=== PATIENT | female | born 1965 | race Caucasian/White ===

== ENCOUNTER → 2016-09-12 | Outpatient (CLI) | payer OTHER ==
[2016-09-12 17:38] LABS: ABSOLUTE EOSINOPHILS # (AUTO) 0.1 10^3/uL (0.0-0.6); ABSOLUTE LYMPHOCYTES (AUTO) 2.2 10^3/uL (0.5-4.7); ABSOLUTE MONOCYTES (AUTO) 0.5 10^3/uL (0.1-1.4); ABSOLUTE NEUT (AUTO) 3.1 10^3/uL (1.7-8.2); BASOPHILS % (AUTO) 0.7 % (0-2); EOSINOPHILS % (AUTO) 2.5 % (0-6); HEMATOCRIT 37.2 % (36.0-47.0); HEMOGLOBIN 12.3 g/dL (12.0-15.5); HGB HCT DIFFERENCE -0.3; LYMPHOCYTES % (AUTO) 36.7 % (13-45); MEAN CORPUSCULAR HEMOGLOBIN 32.5 pg (27.0-33.4); MEAN CORPUSCULAR HGB CONC 33.2 g/dL (32.0-36.0); MEAN CORPUSCULAR VOLUME 98 fl (80-97); MONOCYTES % (AUTO) 8.1 % (3-13); RED CELL DISTRIBUTION WIDTH 12.8 % (11.5-14.0); WHITE BLOOD COUNT 5.9 10^3/uL (4.0-10.5)
[2016-09-12 17:46] LABS: APPEARANCE,URINE CLEAR; BILIRUBIN,URINE NEGATIVE (NEGATIVE); GLUCOSE, URINE NEGATIVE (NEGATIVE); KETONES,URINE NEGATIVE (NEGATIVE); LEUKOCYTE ESTERASE,URINE NEGATIVE (NEGATIVE); NITRITE,URINE NEGATIVE (NEGATIVE); PROTEIN,URINE NEGATIVE (NEGATIVE); URINE SPECIFIC GRAVITY 1.011; UROBILINOGEN,URINE NEGATIVE mg/dL (<2.0)
== END ==
LOC: OD 16:45
PROVIDERS: ATTEND Podiatrist Foot & Ankle Surgery
DX: Z01.812 Encounter for preprocedural laboratory examination (principal); M20.12 Hallux valgus (acquired), left foot
CPT/HCPCS: 36415; 81001; 85025

== ENCOUNTER 2016-09-14 10:39 | Day surgery (SDC) | payer OTHER ==
[~2016-09-14 10:39] MED LIST: CEFAZOLIN 1 GM/D5W RTU 1 GM/50 ML RTUPB IV PRN; FENTANYL CITRATE INJ/PF 100 MCG/2 ML AMPUL ONE; HYDROMORPHONE HCL INJ/PF 2 MG/ML AMPULE ONE; MIDAZOLAM 2 MG/2 ML INJ ONE; PROPOFOL INJ 200 MG/20 ML VIAL IV ONE; RINGERS SOLUTION,LACTATED 1,000 ML IV PRN
[2016-09-14] MEDS ORDERED: BUPIVACAINE HCL 0.5 % INJ/PF 30 ML SDV ONE (10:57)
[2016-09-14] MEDS ORDERED: LIDOCAINE 2% INJ (20 MG/ML) 20 ML MDV ONE (10:57)
--- NOTE | 2016-09-14 14:48 | [facility] OPERATIVE REPORT E ---
[facility] NAME: AMINATA NOBLE AGE: 51Y DATE OF SURGERY: 09/14/2016 ROOM: PREOPERATIVE DIAGNOSES: 1. Tailor bunion deformity of left foot. 2. A digital deformity of the fourth and fifth toes, left foot. POSTOPERATIVE DIAGNOSES: 1. Tailor bunion deformity of left foot. 2. A digital deformity of the fourth and fifth toes, left foot. PROCEDURES PERFORMED: 1. Osteotomy, fifth metatarsal left foot. 2. Phalangectomy, proximal phalanx, fifth toe left foot. 3. Phalangectomy, middle phalanx, fourth toe left foot. FINDINGS: Intraoperative findings indicated dislocation of the fifth metatarsal phalangeal joint which has created a pressure area on the lateral aspect of the hip at the fifth metatarsal and also has set the environment for the fifth toe to rotate in a varus rotation, and due to the excessive pressure against the fourth toe, the fourth toe has dislocated and has acquired an under-lapping position under the third toe. There was also aforementioned a very painful corn at the very distal medial aspect of the fifth toe due to this chronic friction between the fourth and fifth toe. Intraoperative findings were confirmed clinically and radiographically. SURGEON: LEOLA EDGE D.P.M. PROCEDURE: With the patient lying in a dorsal recumbent position, left foot and leg was prepped and draped in the usual standard sterile orthopedic manner after the local anesthesia was administered, which was a total ankle block. After the anesthetic effect was accomplished, the left leg was elevated for approximately 2 minutes of time, and the left ankle pneumatic tourniquet was inflated up to 250 mmHg after the blood was exsanguinated from the left foot. The left foot was brought to the level of the table. Attention was directed right over the fifth metatarsophalangeal joint. A curvilinear incision was placed right over the joint. The initial incision was deepened. The superficial and deep subcutaneous tissues were dissected via blunt and sharp dissection. All bleeders were dilated. All vital structures were identified and protected from surgical trauma. At that point, the capsular structures along the fifth metatarsal joint were visualized, and a vertical capsulotomy was performed over the joint. Capsule and periosteal structures were dissected to bone. The surgical neck was brought into the surgical field, and this was the area of performing the osteotomy which was performed from dorsal to plantar direction. This was an oblique osteotomy with 45-degree angulation to the long axis of the fifth metatarsal. The osteotomy was from medial proximal to lateral distal direction. After the osteotomy was completed, the head was shifted medially and dorsally. That allowed the fifth toe to acquire a little bit more a rectus position in relationship to the long axis of the foot. A decision was made to straighten the fifth toe further. A curvilinear incision was placed right over the fifth toe. The initial incision was deepened. The superficial and deep subcutaneous tissues were dissected via blunt and sharp dissection. This dissection was carried until the capsule structures of the proximal interphalangeal joint were brought into the surgical field. At this point, a transverse incision was placed right over the joint capsule and periosteal structures were dissected to bone. The head of the proximal phalanx was brought into the surgical field. A very distal portion of the proximal phalanx of the fifth toe was removed. A sufficient bone was removed to allow a fifth toe to acquire a more aligned rectus position. The evaluation was conducted and the correction was very satisfactory. Next, attention was directed right over the fourth toe. A hockey-type incision was placed right over the fourth toe. The incision ran over the dorsal lateral, and the hockey portion of the incision curved distal to the distal interphalangeal joint. The initial incision was deepened. The superficial and deep subcutaneous tissues were dissected via blunt and sharp dissection, and at this point the distal interphalangeal joint was visualized. A transverse incision was placed right over the joint. Capsule and periosteal structures were dissected to bone, and the head of the middle phalanx was visualized. The very distal portion of the middle phalanx was removed, and that bone was resected to allow the distal portion of the fourth toe to acquire a rectus position. Final evaluation was conducted, and again correction was extremely satisfactory. At this point, the left ankle pneumatic tourniquet was deflated. Circulation of the left foot returned to normal as the normal digital color and temperature became apparent. At this point, the capsule structures around the fifth metatarsophalangeal joint, the proximal interphalangeal joint of the fifth toe, and the distal interphalangeal joint of the fourth toe were closed with 3-0 Vicryl. All subcutaneous tissues from deep to superficial at the 3 surgical sites were closed with 3-0 Vicryl. Finally, the skin edges were coapted and closed with 4-0 nylon suture over the fifth metatarsophalangeal joint and over the fifth toe. Prior to closure of the skin over the fourth toe, there was a little plastic revision done of the skin. There was a creation of extra skin due to the rotation of the fourth toe, and a rectangular wedge of skin was removed so the skin edges could be aligned properly. After that, the skin edges were closed with 4-0 nylon using continuous interlocked stitch. At this point, Betadine compression dressing was applied around the multiple surgical sites followed with Kal bandage and a surgical shoe. This patient tolerated procedures well, left the operating room with stable vital signs in good condition. The patient was taken to the recovery room alert, conscious, and oriented. There are no permanent disabilities anticipated at this time. DICTATING PHYSICIAN: LEOLA EDGE D.P.M. [id number] PHY#: [id number] ID: [id number] JOB#: [id number] ACCT: [id number] cc:LEOLA EDGE D.P.M. > MTDD
== END 2016-09-14 14:35 | disposition home or self-care (01) ==
LOC: SC 10:39
PROVIDERS: ATTEND Podiatrist Foot & Ankle Surgery
PROC: 0QTR0ZZ Resection of Left Toe Phalanx, Open Approach (ICD-10-PCS; 2016-09-14)
PROC: 0QBP0ZZ Excision of Left Metatarsal, Open Approach (ICD-10-PCS; principal; 2016-09-14 11:45)
DX: M21.622 Bunionette of left foot (principal); M21.6X2 Other acquired deformities of left foot; Z88.2 Allergy status to sulfonamides; Z79.899 Other long term (current) drug therapy; D64.9 Anemia, unspecified; E07.9 Disorder of thyroid, unspecified; I10 Essential (primary) hypertension
CPT/HCPCS: 28110; 28124 ×2; J2250; J3490; J0690; J1170; J2704; 1480; J3010

== ENCOUNTER → 2017-06-07 | Outpatient (CLI) | payer OTHER ==
--- NOTE | 2017-06-07 15:42 | RADIOLOGY REPORT (SQ) ---
EXAM DESCRIPTION: CT ABD/PELVIS COMBO COMPLETED DATE/TIME: 06/07/2017 3:23 pm REASON FOR STUDY: HEMATURIA (R31.9) R31.9 HEMATURIA, UNSPECIFIED COMPARISON: None. TECHNIQUE: CT scan of the abdomen and pelvis performed with and without intravenous contrast, and wi thout oral contrast. Contrasted imaging performed helical scanning technique and dynamic intravenous contrast injection. Images reviewed with lung, soft tissue, and bone windows. Reconstructed coronal a nd sagittal MPR images reviewed. Delayed images for evaluation of the urinary system also acquired. A ll images stored on PACS. All CT scanners at this facility use dose modulation, iterative reconstruction, and/or weight based d osing when appropriate to reduce radiation dose to as low as reasonably achievable (ALARA). [facility]: Dose Right [facility]: CareDose [facility]: Dose Right [facility]: Teradose 4D [facility]: [employer] CONTRAST TYPE AND DOSE: contrast/concentration: Isovue 370.00 mg/ml; Total Contrast Delivered: 70.0 ml; Total Saline Delivered: 66.0 ml RENAL FUNCTION: Creatinine 0.7 RADIATION DOSE: Up-to-date CT equipment and radiation dose reduction techniques were employed. CTDIv ol: 9.0 - 9.0 mGy. DLP: 1361 mGy-cm. . LIMITATIONS: None. FINDINGS: NON-CONTRASTED IMAGING: No significant renal or bladder calcifications. No other significa nt organ calcifications. POST-CONTRASTED IMAGING: LOWER CHEST: No significant findings. No nodules or infiltrates. LIVER: Normal size. No masses. No dilated ducts. SPLEEN: Normal size. No focal lesions. PANCREAS: No masses. No significant calcifications. No adjacent inflammation or peripancreatic fluid collections. Pancreatic duct not dilated. GALLBLADDER: No identified stones by CT criteria. No inflammatory changes to suggest cholecystitis. ADRENAL GLANDS: No significant masses or asymmetry. RIGHT KIDNEY AND URETER: No solid masses. No significant calcifications. No hydronephrosis or hyd roureter. LEFT KIDNEY AND URETER: No solid masses. No significant calcifications. No hydronephrosis or hydr oureter. AORTA AND VESSELS: No aneurysm. No dissection. Renal arteries, SMA, celiac without stenosis. RETROPERITONEUM: No retroperitoneal adenopathy, hemorrhage or masses. BOWEL AND PERITONEAL CAVITY: No masses or inflammatory changes. No free fluid or peritoneal masses. APPENDIX: Normal. PELVIS: A large pelvic mass is identified measuring 8.5 x 8.2 x 7.3 cm in diameters consistent with a n enlarged uterus. The majority of the mass is of heterogeneous relative low density to the remainde r of the uterus. The appearance is most consistent with an enlarged uterine fibroid although the pos sibility of a leiomyosarcoma cannot be excluded. There are couple tiny associated calcifications ant eriorly. The mass impinges on the bladder. No definite bladder masses are identified. No free flui d is seen. ABDOMINAL WALL: No masses. No hernias. BONES: No significant or acute findings. OTHER: No other significant finding. IMPRESSION: No renal ureteric calculi are identified. No renal masses are identified. Large pelvic mass as noted above most consistent with an enlarged uterus. The majority of the mass is of heterog eneous relative low density and is most consistent with an enlarged uterine fibroid although the poss ibility of a leiomyosarcoma cannot be excluded. Other findings as noted above TECHNICAL DOCUMENTATION: JOB ID: [id number] Quality ID # [id number]: Final reports with documentation of one or more dose reduction techniques (e.g., Au tomated exposure control, adjustment of the mA and/or kV according to patient size, use of iterative reconstruction technique) 2010 [email or web address]- All Rights Reserved
== END ==
LOC: RAD 13:55
PROVIDERS: ATTEND Physician Assistant
DX: R31.9 Hematuria, unspecified (principal)
CPT/HCPCS: 74178; 82565

== ENCOUNTER 2017-09-26 05:26 | Inpatient (IN) | payer OTHER ==
[2017-09-24 11:29] LABS: APPEARANCE,URINE CLEAR; BILIRUBIN,URINE NEGATIVE (NEGATIVE); COLOR,URINE YELLOW; GLUCOSE, URINE NEGATIVE (NEGATIVE); KETONES,URINE NEGATIVE (NEGATIVE); LEUKOCYTE ESTERASE,URINE NEGATIVE (NEGATIVE); NITRITE,URINE NEGATIVE (NEGATIVE); PROTEIN,URINE NEGATIVE (NEGATIVE); URINE SPECIFIC GRAVITY 1.017; UROBILINOGEN,URINE NEGATIVE mg/dL (<2.0)
--- NOTE | 2017-09-24 12:22 | RADIOLOGY REPORT (SQ) ---
EXAM DESCRIPTION: CHEST PA/LATERAL COMPLETED DATE/TIME: 09/24/2017 11:35 am REASON FOR STUDY: PRE OP COMPARISON: CT abdomen pelvis 06/07/2017 EXAM PARAMETERS: NUMBER OF VIEWS: two views TECHNIQUE: Digital Frontal and Lateral radiographic views of the chest acquired. RADIATION DOSE: NA LIMITATIONS: none FINDINGS: LUNGS AND PLEURA: No opacities, masses or pneumothorax. No pleural effusion. MEDIASTINUM AND HILAR STRUCTURES: No masses or contour abnormalities. HEART AND VASCULAR STRUCTURES: Heart normal size. No evidence for failure. Benign fat pad right med ial cardiophrenic angle BONES: No acute findings. HARDWARE: None in the chest. OTHER: No other significant finding. IMPRESSION: NO SIGNIFICANT RADIOGRAPHIC FINDING IN THE CHEST. TECHNICAL DOCUMENTATION: JOB ID: [id number] [employer]- All Rights Reserved
[2017-09-24 12:24] LABS: HEMOGLOBIN 13.3 g/dL (12.0-15.5); MEAN CORPUSCULAR HEMOGLOBIN 33.3 pg (27.0-33.4); MEAN CORPUSCULAR HGB CONC 34.2 g/dL (32.0-36.0); MEAN CORPUSCULAR VOLUME 97 fl (80-97); PLATELET COUNT 323 10^3/uL (150-450); RED BLOOD COUNT 4.01 10^6/uL (3.72-5.28); RED CELL DISTRIBUTION WIDTH 13.1 % (11.5-14.0); WHITE BLOOD COUNT 5.8 10^3/uL (4.0-10.5)
[2017-09-24 12:49] LABS: ANION GAP 9 (5-19); BLOOD UREA NITROGEN 20 mg/dL (7-20); CALCIUM 9.4 mg/dL (8.4-10.2); CARBON DIOXIDE 25 mmol/L (22-30); CHLORIDE 104 mmol/L (98-107); GLUCOSE 81 mg/dL (75-110); SODIUM 138.2 mmol/L (137-145)
--- NOTE | 2017-09-24 22:33 | EKG REPORT ---
SEVERITY:- NORMAL ECG - SINUS RHYTHM : Confirmed by: Steven Nguyen 24-Sep-2017 22:32:58
[~2017-09-26 05:26] MED LIST changes: -FENTANYL CITRATE INJ/PF 100 MCG/2 ML AMPUL ONE; -HYDROMORPHONE HCL INJ/PF 2 MG/ML AMPULE ONE; +LACTATED RINGERS 1000 ML IV PRN; +LIDOCAINE 0.5% INJ-PF (5 MG/ML) 50 ML SDV SUBCUT PRN; -MIDAZOLAM 2 MG/2 ML INJ ONE; -PROPOFOL INJ 200 MG/20 ML VIAL IV ONE; -RINGERS SOLUTION,LACTATED 1,000 ML IV PRN
[2017-09-26] MEDS ORDERED: BUPIVACAINE INJ/PF LIPOSOME/PF 266 MG/20 ML SDV ONE (06:35)
[2017-09-26] MEDS ORDERED: FENTANYL CITRATE INJ/PF 250 MCG/5 ML AMPULE ONE (06:46)
[2017-09-26] MEDS ORDERED: MIDAZOLAM 2 MG/2 ML INJ ONE (06:47)
[2017-09-26] MEDS ORDERED: PROPOFOL INJ 200 MG/20 ML VIAL IV ONE (06:47)
[2017-09-26] MEDS ORDERED: MORPHINE SULFATE 10 MG/ML INJ ONE (06:47)
[2017-09-26] MEDS ORDERED: ACETAMINOPHEN 100 ML IV ONE (06:47)
[2017-09-26] MEDS ORDERED: EPHEDRINE SULFATE INJ 50 MG/1 ML AMPULE ONE (06:58)
[2017-09-26] MEDS ORDERED: MORPHINE SULFATE 10 MG/ML INJ IV PRN (07:51)
[2017-09-26] MEDS ORDERED: MEPERIDINE HCL/PF INJ 25 MG/1 ML DISP.SYRIN IV PRN (07:51)
[2017-09-26] MEDS ORDERED: PROMETHAZINE HCL INJ 25 MG/1 ML VIAL IV PRN (07:51)
[2017-09-26] MEDS ORDERED: DIPHENHYDRAMINE HCL 50 MG/ML VIAL IV PRN (07:51)
[2017-09-26] MEDS ORDERED: FENTANYL CITRATE INJ/PF 100 MCG/2 ML AMPUL IV PRN ×3 (07:51)
[2017-09-26] MEDS ORDERED: MORPHINE SULFATE 10 MG/ML INJ INJ PRN ×2 (09:01)
[2017-09-26] MEDS ORDERED: PROMETHAZINE HCL INJ 25 MG/1 ML VIAL IM PRN (09:02)
[2017-09-26] MEDS ORDERED: MORPHINE SULFATE 10 MG/ML INJ IM PRN (09:02)
[2017-09-26] MEDS ORDERED: KETOROLAC TROMETHAMINE INJ/PF 30 MG/1 ML SDV ONE (09:20)
[2017-09-26] MEDS: LORATADINE 10 MG TABLET PO SCH (11:48)
[2017-09-26] MEDS: CEFAZOLIN 1 GM/D5W RTU 1 GM/50 ML RTUPB IV SCH ×2 (11:56→17:10)
[2017-09-26] MEDS: OXYCODONE-ACETAMINOPHEN 5-325 MG TABLET PO PRN ×2 (12:10→16:45)
[2017-09-26] MEDS: IBUPROFEN 800 MG TABLET PO SCH ×2 (13:13→21:29)
[2017-09-26] MEDS ORDERED: GLYCOPYRROLATE INJ 0.4 MG/2 ML VIAL ONE (14:21)
[2017-09-26] MEDS ORDERED: LIDOCAINE 2% INJ-PF (20 MG/ML) 2 ML AMPUL ONE (14:21)
[2017-09-26] MEDS ORDERED: SUCCINYLCHOLINE CHLORIDE INJ 200 MG/10 ML VIAL ONE (14:21)
[2017-09-26] MEDS ORDERED: DEXAMETHASONE SOD PHOSPHATE INJ 4 MG/1 ML VIAL ONE (14:21)
[2017-09-26] MEDS ORDERED: VECURONIUM BROMIDE INJ 10 MG VIAL IV ONE (14:21)
[2017-09-26] MEDS ORDERED: ONDANSETRON HCL INJ/PF 4 MG/2 ML SDV ONE (14:21)
[2017-09-26] MEDS ORDERED: NEOSTIGMINE METHYLSULFATE 10 MG/10 ML VIAL ONE (14:21)
[2017-09-26] MEDS ORDERED: INFLUENZA ADLT QUAD (36MOS+) 2017-18 VAC 0.5 ML SYR IM PRN (14:43)
[2017-09-26] MEDS ORDERED: HYDROMORPHONE HCL INJ/PF 2 MG/ML AMPULE ONE (19:49)
[2017-09-26] MEDS ORDERED: HYDROMORPHONE HCL INJ/PF 2 MG/ML AMPULE IV PRN (19:49)
[2017-09-26] MEDS: RINGERS SOLUTION,LACTATED 1,000 ML IV PRN (20:07)
[2017-09-27] MEDS: OXYCODONE-ACETAMINOPHEN 5-325 MG TABLET PO PRN ×2 (01:45→07:44)
[2017-09-27] MEDS: RINGERS SOLUTION,LACTATED 1,000 ML IV PRN (03:59)
[2017-09-27] MEDS: IBUPROFEN 800 MG TABLET PO SCH (05:11)
[2017-09-27] MEDS ORDERED: LEVOTHYROXINE SODIUM 0.088 MG TABLET PO SCH (06:00)
[2017-09-27 07:39] LABS: HEMATOCRIT 29.8 % (36.0-47.0); MEAN CORPUSCULAR HEMOGLOBIN 33.9 pg (27.0-33.4); MEAN CORPUSCULAR VOLUME 97 fl (80-97); PLATELET COUNT 224 10^3/uL (150-450); RED BLOOD COUNT 3.07 10^6/uL (3.72-5.28); RED CELL DISTRIBUTION WIDTH 13.3 % (11.5-14.0); WHITE BLOOD COUNT 6.8 10^3/uL (4.0-10.5)
[2017-09-27 07:43] LABS: HEMOGLOBIN 10.4 g/dL (12.0-15.5)
--- NOTE | 2017-09-27 08:23 | DISCHARGE SUMMARY E ---
Discharge Summary NAME: AMINATA NOBLE : 1965 AGE: 52Y ADMITTED: 09/26/2017 DISCHARGED: This is a 52-year-old female admitted for total abdominal hysterectomy with bilateral salpingo-oophorectomy for uterine fibroids. The patient was same-day admission, underwent laparotomy, total abdominal hysterectomy, and bilateral salpingo-oophorectomy. Estimated blood loss approximately 150 mL. HOSPITAL COURSE: She is ambulatory, regular diet, no evidence of DVT, voiding on the day of surgery. Discharged within 24 hours. Incision clean. Pathology pending. Findings are that of an approximately 16- to 18-week size uterus. There appeared to be a posterior solitary fibroid *------* of her pelvis. Normal ovaries were noted. FINAL IMPRESSION: Uterine leiomyoma. PROCEDURE: Total abdominal hysterectomy, bilateral salpingo-oophorectomy. DICTATING PHYSICIAN: PINA MOSS M.D. [id number] PHY#: [id number] ID: [id number] JOB#: [id number] ACCT: [id number] cc:PINA MOSS M.D. >
[2017-09-27 09:19] VITALS: BP 109/70
[2017-09-27] MEDS: LORATADINE 10 MG TABLET PO SCH (09:19)
[2017-09-27] MEDS ORDERED: LOSARTAN POTASSIUM 50 MG TABLET PO SCH (10:00)
[2017-09-27] MEDS ORDERED: (PENDING PHARMACY ID) (Losartan/Hydrochlorothiazide [Losartan-Hctz 50-12.5 Mg Tab] 1 EACH) PO SCH (10:00)
[2017-09-27] MEDS ORDERED: HYDROCHLOROTHIAZIDE 12.5 MG CAPSULE PO SCH (10:00)
--- NOTE | 2017-09-27 12:53 | OPERATIVE REPORT E ---
Operative Report NAME: AMINATA NOBLE : 1965 AGE: 52Y DATE OF SURGERY: 09/26/2017 ROOM: 215 PREOPERATIVE DIAGNOSIS: UTERINE LEIOMYOMA. POSTOPERATIVE DIAGNOSIS: UTERINE LEIOMYOMA. OPERATION: Total abdominal hysterectomy with bilateral salpingo-oophorectomy. SURGEON: PINA MOSS M.D. COMPLICATIONS: None. ANESTHESIA: General endotracheal. ESTIMATED BLOOD LOSS: 150 mL. FINDINGS: A large, approximately 17-nthe-fnog uterus with what appeared to be a solitary intramural fibroid posteriorly. A small uterus was noted. Normal tubes and ovaries appreciated. Normal upper abdomen was appreciated. INDICATION FOR PROCEDURE: Patient had a symptomatic uterine leiomyoma, desired definitive therapy. Usual risks of bleeding, infection, anesthesia, and injury to other organs and tissues discussed. The patient understood. PROCEDURE: The patient was taken to the operating room, placed in the supine position. After adequate anesthesia ascertained, prepped and draped for a hysterectomy. After surgical timeout had been performed and antibiotics had been given, EUA performed. Through a previous Pfannenstiel type incision, incision was carried through subcutaneous fat and fascia. Peritoneum was entered without difficulty, and above noted findings were appreciated. Abdominal contents were packed out of pelvis, and a self-retaining ring retractor was placed uneventfully and without tension. Bladder was sequentially advanced after identification of round ligaments, and using a LigaSure Advance device for the bulk of procedure, the uterus was dissected down to the level of uterine vessels, and the uterus itself was removed, handed off the operative field for adequate visualization of cervix. Jeff clamps were placed laterally, and with the bladder sequentially advanced, the cervix was amputated from the vagina and this was closed with interrupted catgut. Good hemostasis was noted status post procedure. The attention was then turned to both tubes and ovaries, which were well away from the ureters, and the infundibulopelvic ligaments bilaterally were cauterized using LigaSure Advance device. They were handed off the operative field. Specimen included cervix, uterus, both tubes and ovaries . Abdomen was copiously irrigated. Good hemostasis was noted, the parietal peritoneum noted to be dry. removed. Double-stranded PDS was used on the fascia. Subcuticular stitch was not needed and the skin approximated with skin chris. Exparel approximately 40 mL was infiltrated the skin and dressing placed. . DICTATING PHYSICIAN: PINA MOSS M.D. [id number] PHY#: [id number] ID: [id number] JOB#: [id number] ACCT: [id number] cc:ERASTO GRIFFIN M.D., PINA Vera M.D. >
== END 2017-09-27 10:16 | disposition home or self-care (01) | DRG 743 ==
LOC: INOR 05:26 → 2S 10:12
PROVIDERS: ADMIT Specialist; ATTEND Specialist
PROC: 0UT20ZZ Resection of Bilateral Ovaries, Open Approach (ICD-10-PCS; 2017-09-26)
PROC: 0UT70ZZ Resection of Bilateral Fallopian Tubes, Open Approach (ICD-10-PCS; 2017-09-26)
PROC: 0UT90ZZ Resection of Uterus, Open Approach (ICD-10-PCS; principal; 2017-09-26 07:15)
DX: D25.1 Intramural leiomyoma of uterus (principal); E06.3 Autoimmune thyroiditis; Z88.2 Allergy status to sulfonamides
CPT/HCPCS: 36415; 71046; 80048; 81001; 81025; 840; 85027; 86850; 86900; 86901; 88307; 90686; 93005; 93010; 94799; C9290; J0131; J0330; J0690; J1100; J1170; J1885; J2250; J2270; J2405; J2704; J3010; J3490; J7120